=== PATIENT | female | born 1995 | race African-American/Black ===

== ENCOUNTER 2018-07-10 21:33 | Emergency (ER) | payer SELFPAY ==
[2018-07-10] MEDS ORDERED: Ibuprofen 200 MG TAB ONE (21:58)
--- NOTE | 2018-07-10 22:37 | RAD ---
PA AND LATERAL CHEST X-RAY: 07/10/18 HISTORY: Headache, cough, sore throat. The findings and heart and mediastinal structures are within normal limits. The lungs are clear. Osse ous structures are intact. IMPRESSION: No acute cardiopulmonary process. POS: [id number]
== END 2018-07-10 22:39 | disposition home or self-care (01) ==
LOC: ERS 21:33
DX: B34.9 Viral infection, unspecified (principal); F32.9 Major depressive disorder, single episode, unspecified; F17.210 Nicotine dependence, cigarettes, uncomplicated; G43.909 Migraine, unspecified, not intractable, without status migrainosus
CPT/HCPCS: 71046; 87081; 87430; 87804

== ENCOUNTER 2018-11-07 15:51 | Emergency (ER) | payer SELFPAY | END 2018-11-07 17:42 | disposition home or self-care (01) | LOC: ERS 15:51 | DX: K04.7 Periapical abscess without sinus (principal); F17.210 Nicotine dependence, cigarettes, uncomplicated; G43.909 Migraine, unspecified, not intractable, without status migrainosus | CPT/HCPCS: 99282 ==